=== PATIENT | male | born 1950 | race Caucasian/White ===

== ENCOUNTER 2018-01-27 15:10 | Emergency (ER) | payer OTHER ==
[~2018-01-27] VITALS: Ht 175.3 cm; Wt 88.0 kg
[2018-01-27 15:45] LABS: BASOPHILS # (AUTO) 0.05 x10^3/uL (0-0.1); BASOPHILS % (AUTO) 1 % (0-1); EOSINOPHILS % (AUTO) 2 % (1-7); LYMPHOCYTES # (AUTO) 1.12 x10^3/uL (1-3.4); LYMPHOCYTES % (AUTO) 16 % (22-44); MD NO; MEAN CORPUSCULAR HEMOGLOBIN 26.1 pg (27.5-34.5); MEAN CORPUSCULAR HGB CONC 32.4 g/dL (33.2-36.2); MEAN CORPUSCULAR VOLUME 80.7 fL (81-97); MEAN PLATELET VOLUME 7.5 fL (7.4-10.4); MONOCYTES % (AUTO) 14 % (2-9); NEUTROPHILS # (AUTO) 4.69 x10^3/uL (1.8-6.8); NEUTROPHILS % (AUTO) 67 % (42-75); PLATELET COUNT 174 x10^3/uL (130-400); RED BLOOD COUNT 4.73 x10^6/uL (4.38-5.82); RED CELL DISTRIBUTION WIDTH 20.5 % (9.4-14.8)
[2018-01-27 15:57] LABS: ALBUMIN 2.9 g/dL (3.4-5.0); ANION GAP 11 mmol/L (5-15); CALCIUM 8.5 mg/dL (8.5-10.1); CHLORIDE 98 mmol/L (98-107)
[2018-01-27 16:00] LABS: ALANINE AMINOTRANSFERASE 39 U/L (12-78); ALKALINE PHOSPHATASE 95 U/L (45-117); BILIRUBIN,TOTAL 1.8 mg/dL (0.2-1.0); CREATININE 1.03 mg/dL (0.7-1.3); TOTAL PROTEIN 7.8 g/dL (6.4-8.2)
[2018-01-27 16:15] LABS: CULTURE INDICATED? YES; MICROSCOPIC INDICATED
[2018-01-27 16:47] VITALS: BP 120/75
== END 2018-01-27 16:49 | disposition home or self-care (01) ==
LOC: ED 16:43
DX: K42.9 Umbilical hernia without obstruction or gangrene (principal); K74.60 Unspecified cirrhosis of liver
CPT/HCPCS: 36415; 74022; 80053; 81001; 83690; 85025; 87086; 99285

== ENCOUNTER 2018-04-26 07:38 | Emergency (ER) | payer MEDICARE, OTHER ==
[~2018-04-26] VITALS: Ht 175.3 cm; Wt 84.1 kg
--- NOTE | 2018-04-26 08:13 | NUR ---
PT. IS A & O X 4 WITH C/O RIGHT LOWER LEG PAIN. PT.' S CMS CHECKS ARE INTACT. PULSES ARE +2 THROUGHOUT. PT. HAS SWELLING PRESENT TO HIS LEG. PT.'S HOB IS ELEVATED GREATER THAN 30 DEGREES. SIDERAILS ARE UP X 2 WITH THE CALL LIGHT IN PLACE.
[2018-04-26 08:15] LABS: MEAN CORPUSCULAR HEMOGLOBIN 27.4 pg (27.5-34.5); MEAN CORPUSCULAR HGB CONC 32.2 g/dL (33.2-36.2); MEAN CORPUSCULAR VOLUME 85.1 fL (81-97); MEAN PLATELET VOLUME 6.9 fL (7.4-10.4); PLATELET COUNT 155 x10^3/uL (130-400); RED BLOOD COUNT 4.57 x10^6/uL (4.38-5.82); RED CELL DISTRIBUTION WIDTH 22.5 % (9.4-14.8)
[2018-04-26 08:17] LABS: INTERNATIONAL NORMALIZED RATIO 1.13 (0.93-1.1); PROTHROMBIN TIME 11.9 Seconds (9.6-11.5)
[2018-04-26 08:19] LABS: ALBUMIN 3.1 g/dL (3.4-5.0); ANION GAP 5 mmol/L (5-15); CALCIUM 8.4 mg/dL (8.5-10.1); CHLORIDE 111 mmol/L (98-107); CREATININE 0.88 mg/dL (0.7-1.3)
[2018-04-26 08:34] LABS: BASOPHILS # (AUTO) 0.04 x10^3/uL (0-0.1); BASOPHILS % (AUTO) 1 % (0-1); EOSINOPHILS # (AUTO) 0.17 x10^3/uL (0-0.4); EOSINOPHILS % (AUTO) 4 % (1-7); LYMPHOCYTES # (AUTO) 1.22 x10^3/uL (1-3.4); LYMPHOCYTES % (AUTO) 30 % (22-44); MD MORPH REVIEW ONLY; MONOCYTES # (AUTO) 0.73 x10^3/uL (0.2-0.8); MONOCYTES % (AUTO) 18 % (2-9); NEUTROPHILS # (AUTO) 1.93 x10^3/uL (1.8-6.8); NEUTROPHILS % (AUTO) 47 % (42-75)
[2018-04-26 08:36] LABS: <PLATELET ESTIMATE> ADEQUATE; <PLT MORPHOLOGY> NORMAL PLT MORPH; ANISOCYTOSIS 1+; OVALOCYTES 1+; POLYCHROMASIA 1+
[2018-04-26 10:32] VITALS: BP 136/84
== END 2018-04-26 10:34 | disposition home or self-care (01) ==
LOC: ED 08:21
DX: I82.411 Acute embolism and thrombosis of right femoral vein (principal); I10 Essential (primary) hypertension; F17.210 Nicotine dependence, cigarettes, uncomplicated
CPT/HCPCS: 36415; 80048; 82040; 85025; 85610; 99284

== ENCOUNTER 2020-02-23 12:25 | Observation (INO) | payer MEDICARE ==
[~2020-02-23] VITALS: Ht 177.8 cm; Wt 86.0 kg
[2020-02-23] MEDS ORDERED: ONDANSETRON 2MG/ML, 2ML ONE (13:20)
[2020-02-23] MEDS ORDERED: MORPHINE SULFATE 4 MG/ML, 1ML ONE (13:20)
[2020-02-23 13:25] LABS: ALBUMIN 2.4 g/dL (3.4-5.0); ANION GAP 8 mmol/L (5-15); CALCIUM 8.4 mg/dL (8.5-10.1); CHLORIDE 105 mmol/L (98-107)
[2020-02-23] MEDS ORDERED: ONDANSETRON 2MG/ML, 2ML IVPush ONE (13:30)
[2020-02-23] MEDS ORDERED: SODIUM CHLORIDE FLUSH 10ML SYR IVF ONE (13:30)
[2020-02-23] MEDS ORDERED: MORPHINE SULFATE 4 MG/ML, 1ML IVPush PRN (13:30)
[2020-02-23 13:32] LABS: ALANINE AMINOTRANSFERASE 27 U/L (12-78); ALKALINE PHOSPHATASE 100 U/L (45-117); BILIRUBIN,TOTAL 1.5 mg/dL (0.2-1.0); TOTAL PROTEIN 7.9 g/dL (6.4-8.2); TROPONIN I < 0.015 ng/mL (0.000-0.045)
[2020-02-23 14:54] LABS: BASOPHILS % (AUTO) 1 % (0-1); EOSINOPHILS % (AUTO) 1 % (1-7); LYMPHOCYTES % (AUTO) 19 % (22-44); MEAN CORPUSCULAR HEMOGLOBIN 25.3 pg (27.5-34.5); MEAN CORPUSCULAR HGB CONC 31.4 g/dL (33.2-36.2); MEAN PLATELET VOLUME 7.6 fL (7.4-10.4); MONOCYTES % (AUTO) 15 % (2-9); NEUTROPHILS % (AUTO) 64 % (42-75); PLATELET COUNT 188 x10^3/uL (130-400); RED BLOOD COUNT 3.67 x10^6/uL (4.38-5.82); RED CELL DISTRIBUTION WIDTH 22.8 % (9.4-14.8)
[2020-02-23 15:01] LABS: MD MORPH REVIEW ONLY
[2020-02-23 15:54] LABS: ANISOCYTOSIS 1+; POLYCHROMASIA 1+
[2020-02-23 15:55] LABS: <PLATELET ESTIMATE> ADEQUATE; <PLT MORPHOLOGY> NORMAL PLT MORPH; OVALOCYTES 1+
--- NOTE | 2020-02-23 15:57 | NUR ---
[place] NOT[place] AT [place], PT ON ALL MONITORING, WILL CONTINUE TO MONITOR. NO NEEDS AT THIS TIME PER PT.
[2020-02-23] MEDS ORDERED: MELATONIN 5 MG TABLET PO PRN (16:30)
[2020-02-23] MEDS ORDERED: HEPARIN 5,000 UNITS/ML, 1ML SQ SCH (16:30)
[2020-02-23] MEDS ORDERED: ENALAPRILAT 1.25 MG/ML, 2ML IVPush PRN (16:30)
[2020-02-23] MEDS ORDERED: ONDANSETRON ODT 4 MG PO PRN (16:30)
[2020-02-23] MEDS ORDERED: DOCUSATE 100 MG CAPSULE PO PRN (16:30)
[2020-02-23] MEDS ORDERED: morphine SULFATE 10 MG/ML, 1ML IVPush PRN (16:30)
[2020-02-23] MEDS ORDERED: IBUPROFEN 600 MG TABLET PO PRN (16:30)
[2020-02-23 17:22] LABS: INTERNATIONAL NORMALIZED RATIO 1.22 (0.93-1.1); PROTHROMBIN TIME 12.9 Seconds (9.6-11.5)
[2020-02-23] MEDS ORDERED: HEPARIN 5,000 UNITS/ML, 1ML ONE (17:39)
[2020-02-23] MEDS ORDERED: OMNIPAQUE 350 MG/ML, 75ML BOTTLE ONE (17:40)
[2020-02-23 18:19] VITALS: BP 129/74
[2020-02-23] MEDS ORDERED: HEPARIN 5,000 UNITS/ML, 1ML IV PRN ×2 (19:00→19:30)
[2020-02-23] MEDS ORDERED: HEPARIN 25,000 UNITS/250ML PMX 250 ML IV PRN ×2 (19:00→19:30)
[2020-02-23] MEDS ORDERED: HEPARIN 5,000 UNITS/ML, 1ML IV ONE ×2 (19:00→19:30)
[2020-02-23 19:04] VITALS: BP 123/66
[2020-02-23] MEDS ORDERED: SPIRONOLACTONE 25 MG TABLET ONE (20:31)
[2020-02-23] MEDS: SPIRONOLACTONE 50 MG TABLET PO SCH (20:38)
[2020-02-23 20:57] LABS: TROPONIN I < 0.015 ng/mL (0.000-0.045)
[2020-02-24 01:21] VITALS: BP 118/68
[2020-02-24 02:04] LABS: TROPONIN I < 0.015 ng/mL (0.000-0.045)
[2020-02-24 04:00] LABS: BASOPHILS % (AUTO) 1 % (0-1); EOSINOPHILS % (AUTO) 1 % (1-7); LYMPHOCYTES % (AUTO) 22 % (22-44); MEAN CORPUSCULAR HEMOGLOBIN 25.3 pg (27.5-34.5); MEAN CORPUSCULAR HGB CONC 31.6 g/dL (33.2-36.2); MEAN PLATELET VOLUME 7.2 fL (7.4-10.4); MONOCYTES % (AUTO) 17 % (2-9); NEUTROPHILS % (AUTO) 60 % (42-75); PLATELET COUNT 168 x10^3/uL (130-400)
[2020-02-24 04:06] LABS: ALANINE AMINOTRANSFERASE 23 U/L (12-78); ANION GAP 7 mmol/L (5-15); CALCIUM 8.2 mg/dL (8.5-10.1); CHLORIDE 105 mmol/L (98-107)
[2020-02-24 04:09] LABS: ALKALINE PHOSPHATASE 83 U/L (45-117); BILIRUBIN,TOTAL 1.7 mg/dL (0.2-1.0); CREATININE 0.95 mg/dL (0.7-1.3); TOTAL PROTEIN 6.8 g/dL (6.4-8.2)
[2020-02-24 05:48] LABS: MD SCAN
[2020-02-24] MEDS ORDERED: PANTOPRAZOLE 40MG TABLET PO SCH (07:30)
[2020-02-24] MEDS ORDERED: POTASSIUM CHLORIDE 10 MEQ TABLET.ER PO SCH (08:00)
[2020-02-24] MEDS ORDERED: FUROSEMIDE 20 MG TABLET PO SCH (09:00)
[2020-02-24] MEDS: SPIRONOLACTONE 50 MG TABLET PO SCH (10:23)
[2020-02-24 10:42] VITALS: BP 103/61
[2020-02-24 14:15] VITALS: BP 105/66
[2020-02-24] MEDS ORDERED: APIX5TAB4 PO (15:01)
[2020-02-24] MEDS ORDERED: APIXABAN 5 MG TABLET ONE ×2 (15:19→15:21)
[2020-02-24] MEDS ORDERED: APIXABAN 5 MG TABLET PO SCH ×2 (15:30→15:33)
[2020-02-24] MEDS ORDERED: RIVA15TA PO (16:26)
[2020-02-24] MEDS ORDERED: RIVA20TA PO (16:27)
== END 2020-02-24 17:52 ==
LOC: ED 12:47 → EDIP 16:20 → 5SO 18:10
PROVIDERS: ADMIT Family Medicine; ATTEND Internal Medicine
DX: R07.89 Other chest pain (principal); I26.99 Other pulmonary embolism without acute cor pulmonale; I82.401 Acute embolism and thrombosis of unspecified deep veins of right lower extremity; R60.0 Localized edema; L53.8 Other specified erythematous conditions; K70.31 Alcoholic cirrhosis of liver with ascites; R74.01 Elevation of levels of liver transaminase levels; I10 Essential (primary) hypertension; R60.1 Generalized edema; E80.6 Other disorders of bilirubin metabolism; E46 Unspecified protein-calorie malnutrition; E87.6 Hypokalemia; D68.59 Other primary thrombophilia; I85.10 Secondary esophageal varices without bleeding; F10.10 Alcohol abuse, uncomplicated; F17.200 Nicotine dependence, unspecified, uncomplicated; Z86.718 Personal history of other venous thrombosis and embolism; Z85.038 Personal history of other malignant neoplasm of large intestine; Z90.49 Acquired absence of other specified parts of digestive tract; Z87.19 Personal history of other diseases of the digestive system; Z88.0 Allergy status to penicillin; Z66 Do not resuscitate; Z79.899 Other long term (current) drug therapy
CPT/HCPCS: 36415; 71045; 71275; 76700; 80053; 84484; 85025; 85379; 85520; 85610; 93005; 93970; 96365; 96366; 96372; 96375; 96376; 99285; G0378; J1644; J2270; J2405; Q9967

== ENCOUNTER 2020-03-22 07:44 | Outpatient (CLI) | payer MEDICARE ==
[~2020-03-22 07:44] MED LIST: APIX5TAB4 PO; RIVA15TA PO; RIVA20TA PO
[2020-03-22] MEDS ORDERED: WARF1TAB74 PO (08:11)
== END 2020-03-22 23:59 | disposition home or self-care (01) ==
LOC: STAR 07:44
PROVIDERS: ATTEND Internal Medicine Gastroenterology
DX: Z20.828 Contact with and (suspected) exposure to other viral communicable diseases (principal); K74.60 Unspecified cirrhosis of liver
CPT/HCPCS: 87635

== ENCOUNTER 2020-03-27 08:05 | Day surgery (SDC) | payer MEDICARE ==
[~2020-03-27] VITALS: Ht 177.8 cm; Wt 79.1 kg
[~2020-03-27 08:05] MED LIST changes: +WARF1TAB74 PO
[2020-03-27] MEDS ORDERED: ALBUTEROL SULFATE 2.5 MG/3 ML NPPB PRN (08:30)
[2020-03-27] MEDS ORDERED: FENTANYL PF 100 MCG/2ML IV PRN (08:30)
[2020-03-27] MEDS ORDERED: EPHEDRINE 50 MG/ML, 1ML IM PRN (08:30)
[2020-03-27] MEDS ORDERED: METOCLOPRAMIDE 5 MG/ML, 2ML IVPush PRN (08:30)
[2020-03-27] MEDS ORDERED: LABETALOL 5MG/ML, 20ML IV PRN (08:30)
[2020-03-27] MEDS ORDERED: HALOPERIDOL 5 MG/ML IV PRN (08:30)
[2020-03-27] MEDS ORDERED: ONDANSETRON 2MG/ML, 2ML IVPush PRN (08:30)
[2020-03-27] MEDS ORDERED: EPHEDRINE 50 MG/ML, 1ML IVPush PRN (08:30)
[2020-03-27] MEDS ORDERED: hydrALAzine 20 MG/ML, 1ML IV PRN (08:30)
[2020-03-27] MEDS ORDERED: MIDAZOLAM 1 MG/ML, 2ML IV PRN (08:30)
[2020-03-27] MEDS ORDERED: OXYcodone 5 MG/5 ML ORAL.SOL UDC PO PRN ×2 (08:30→11:30)
[2020-03-27] MEDS ORDERED: LORazepam 2 MG/ML, 1ML IVPush PRN (08:30)
[2020-03-27] MEDS ORDERED: DIPHENHYDRAMINE 50 MG/ML, 1ML IVPush PRN (08:30)
[2020-03-27] MEDS ORDERED: METHOCARBAMOL 1,000 MG in DEXTROSE 5% 100 ML IV PRN (08:30)
[2020-03-27] MEDS ORDERED: DIAZEPAM 5 MG/ML, 2ML IVPush PRN (08:30)
[2020-03-27] MEDS ORDERED: HYDROcodone/APAP 7.5-325MG/15ML UDC PO PRN (08:30)
[2020-03-27] MEDS ORDERED: LIDOCAINE-MPF 1%, 2ML INFIL ONE (09:00)
[2020-03-27] MEDS ORDERED: CHLORHEXIDINE 15 ML UDC MM ONE (09:00)
[2020-03-27] MEDS ORDERED: LACTATED RINGERS 1,000 ML IV SCH (09:00)
[2020-03-27 09:02] VITALS: BP 144/74
[2020-03-27] MEDS ORDERED: DIURETIC PO (09:02)
[2020-03-27 10:07] LABS: BASOPHILS % (AUTO) 2 % (0-1); EOSINOPHILS % (AUTO) 3 % (1-7); LYMPHOCYTES % (AUTO) 27 % (22-44); MEAN CORPUSCULAR HEMOGLOBIN 23.8 pg (27.5-34.5); MEAN CORPUSCULAR HGB CONC 31.2 g/dL (33.2-36.2); MEAN PLATELET VOLUME 8.3 fL (7.4-10.4); MONOCYTES % (AUTO) 15 % (2-9); NEUTROPHILS % (AUTO) 54 % (42-75); PLATELET COUNT 162 x10^3/uL (130-400); RED BLOOD COUNT 3.92 x10^6/uL (4.38-5.82); RED CELL DISTRIBUTION WIDTH 22.5 % (9.4-14.8)
[2020-03-27 10:12] LABS: INTERNATIONAL NORMALIZED RATIO 1.24 (0.93-1.1); PROTHROMBIN TIME 13.1 Seconds (9.6-11.5)
[2020-03-27] MEDS ORDERED: FENTANYL PF 100 MCG/2ML ONE ×2 (10:34)
[2020-03-27] MEDS ORDERED: MIDAZOLAM 1 MG/ML, 5ML ONE (10:34)
[2020-03-27 10:59] LABS: <PLATELET ESTIMATE> ADEQUATE; <PLT MORPHOLOGY> NORMAL PLT MORPH; ANISOCYTOSIS 1+; HYPOCHROMIA 1+; MD MORPH REVIEW ONLY; MICROCYTOSIS 1+; OVALOCYTES 1+; POLYCHROMASIA 1+
[2020-03-27] MEDS ORDERED: LIDOCAINE 2% VISCOUS 15 ML UDC MM ONE (11:30)
== END 2020-03-27 13:18 | disposition home or self-care (01) ==
LOC: OUT 08:05
PROVIDERS: ATTEND Internal Medicine Gastroenterology
DX: K70.31 Alcoholic cirrhosis of liver with ascites (principal); I85.10 Secondary esophageal varices without bleeding; K76.6 Portal hypertension; K31.89 Other diseases of stomach and duodenum; I10 Essential (primary) hypertension; Z85.038 Personal history of other malignant neoplasm of large intestine; Z86.718 Personal history of other venous thrombosis and embolism; Z87.891 Personal history of nicotine dependence; Z88.0 Allergy status to penicillin; Z90.49 Acquired absence of other specified parts of digestive tract
CPT/HCPCS: 36415; 43244; 85025; 85610; 99152; 99153; J2250; J3010; J7120

== ENCOUNTER 2020-08-29 09:49 | Outpatient (CLI) | payer MEDICARE ==
[~2020-08-29 09:49] MED LIST changes: +DIURETIC PO
[2020-08-29] MEDS ORDERED: OMNIPAQUE 350 MG/ML, 75ML BOTTLE ONE (10:15)
== END 2020-08-29 23:59 | disposition home or self-care (01) ==
LOC: CFH 09:49
PROVIDERS: ATTEND Internal Medicine Gastroenterology
DX: C22.0 Liver cell carcinoma (principal)
CPT/HCPCS: 71260; 82565; Q9967

== ENCOUNTER 2020-09-05 10:42 | Day surgery (SDC) | payer MEDICARE ==
[~2020-09-05] VITALS: Ht 175.3 cm; Wt 80.3 kg
[2020-09-05] MEDS ORDERED: CHLORHEXIDINE 15 ML UDC ONE (11:34)
[2020-09-05] MEDS ORDERED: FENTANYL PF 100 MCG/2ML ONE (11:38)
[2020-09-05] MEDS ORDERED: IRON1TAB60 PO (11:44)
[2020-09-05 11:46] VITALS: BP 157/78
[2020-09-05 11:46] LABS: INTERNATIONAL NORMALIZED RATIO 1.36 (0.93-1.1); PROTHROMBIN TIME 14.5 Seconds (9.6-11.5)
[2020-09-05 11:48] LABS: ALANINE AMINOTRANSFERASE 48 U/L (12-78); ALBUMIN 3.2 g/dL (3.4-5.0); ANION GAP 7 mmol/L (5-15); CALCIUM 8.8 mg/dL (8.5-10.1); CHLORIDE 109 mmol/L (98-107); CREATININE 0.93 mg/dL (0.7-1.3)
[2020-09-05 11:54] LABS: ALKALINE PHOSPHATASE 94 U/L (45-117); BILIRUBIN,TOTAL 3.5 mg/dL (0.2-1.0); TOTAL PROTEIN 8.1 g/dL (6.4-8.2)
[2020-09-05] MEDS ORDERED: hydrALAzine 20 MG/ML, 1ML IV PRN (12:00)
[2020-09-05] MEDS ORDERED: OXYcodone 5 MG/5 ML ORAL.SOL UDC PO PRN (12:00)
[2020-09-05] MEDS ORDERED: LACTATED RINGERS 1,000 ML IV SCH (12:00)
[2020-09-05] MEDS ORDERED: HALOPERIDOL 5 MG/ML IV PRN (12:00)
[2020-09-05] MEDS ORDERED: METOCLOPRAMIDE 5 MG/ML, 2ML IVPush PRN (12:00)
[2020-09-05] MEDS ORDERED: CHLORHEXIDINE 15 ML UDC PO ONE (12:00)
[2020-09-05] MEDS ORDERED: DIAZEPAM 5 MG/ML, 2ML IVPush PRN (12:00)
[2020-09-05] MEDS ORDERED: FENTANYL PF 100 MCG/2ML IV PRN (12:00)
[2020-09-05] MEDS ORDERED: METOPROLOL 1 MG/ML, 5ML IV PRN (12:00)
[2020-09-05] MEDS ORDERED: PROMETHAZINE 25 MG/ML, 1ML IVPush PRN (12:00)
[2020-09-05] MEDS ORDERED: DIPHENHYDRAMINE 50 MG/ML, 1ML IVPush PRN (12:00)
[2020-09-05] MEDS ORDERED: EPHEDRINE 50 MG/ML, 1ML IVPush PRN (12:00)
[2020-09-05] MEDS ORDERED: ONDANSETRON 2MG/ML, 2ML IVPush PRN (12:00)
[2020-09-05] MEDS ORDERED: LABETALOL 5MG/ML, 20ML IV PRN (12:00)
[2020-09-05] MEDS ORDERED: ACETAMINOPHEN 325 MG TABLET PO PRN (12:00)
[2020-09-05] MEDS ORDERED: PROPOFOL 10 MG/ML, 50ML ONE (12:03)
[2020-09-05] MEDS ORDERED: ONDANSETRON 2MG/ML, 2ML ONE (12:03)
== END 2020-09-05 14:10 | disposition home or self-care (01) ==
LOC: OR 10:42 → OUT 14:10
PROVIDERS: ATTEND Internal Medicine Gastroenterology
DX: I85.00 Esophageal varices without bleeding (principal); D12.5 Benign neoplasm of sigmoid colon; D50.9 Iron deficiency anemia, unspecified; K76.6 Portal hypertension; K31.89 Other diseases of stomach and duodenum; K70.30 Alcoholic cirrhosis of liver without ascites; K26.9 Duodenal ulcer, unspecified as acute or chronic, without hemorrhage or perforation; Z88.0 Allergy status to penicillin; Z20.822 Contact with and (suspected) exposure to COVID-19; Z98.890 Other specified postprocedural states; Z79.01 Long term (current) use of anticoagulants; Z87.891 Personal history of nicotine dependence; Z79.899 Other long term (current) drug therapy; Z85.038 Personal history of other malignant neoplasm of large intestine
CPT/HCPCS: 36415; 43239; 43244; 45385; 80053; 85610; 85730; 87635; 88305; 93005; J2405; J2704; J3010; J7120

== ENCOUNTER 2020-09-25 09:31 | Outpatient (CLI) | payer MEDICARE ==
[~2020-09-25 09:31] MED LIST changes: +IRON1TAB60 PO
== END 2020-09-25 23:59 | disposition home or self-care (01) ==
LOC: RAD 09:31
PROVIDERS: ATTEND Internal Medicine Gastroenterology
DX: C22.0 Liver cell carcinoma (principal); K70.30 Alcoholic cirrhosis of liver without ascites
CPT/HCPCS: 37243; 75894

== ENCOUNTER 2020-10-17 06:46 | Day surgery (SDC) | payer MEDICARE ==
[~2020-10-17] VITALS: Ht 175.3 cm; Wt 83.4 kg
[2020-10-17 07:30] VITALS: BP 134/80
[2020-10-17 08:01] LABS: INTERNATIONAL NORMALIZED RATIO 1.23 (0.93-1.1)
[2020-10-17] MEDS ORDERED: LIDOCAINE 1%, 10ML ONE (08:29)
[2020-10-17] MEDS ORDERED: DOXorubicin 75 MG in SYRINGE 1 EA IV ONE (09:00)
[2020-10-17] MEDS ORDERED: MIDAZOLAM 1 MG/ML, 5ML ONE (09:09)
[2020-10-17] MEDS ORDERED: FENTANYL PF 100 MCG/2ML ONE (09:09)
[2020-10-17] MEDS ORDERED: NALOXONE 1 MG/ML, 2ML ONE (09:10)
[2020-10-17] MEDS ORDERED: FLUMAZENIL 0.1 MG/1 ML, 5ML ONE (09:10)
[2020-10-17 10:11] LABS: ANION GAP 7 mmol/L (5-15); CHLORIDE 110 mmol/L (98-107); CREATININE 0.77 mg/dL (0.7-1.3)
[2020-10-17 10:12] LABS: ALANINE AMINOTRANSFERASE 43 U/L (12-78); ALBUMIN 2.7 g/dL (3.4-5.0)
[2020-10-17 10:14] LABS: ALKALINE PHOSPHATASE 95 U/L (45-117); BILIRUBIN,TOTAL 2.8 mg/dL (0.2-1.0); TOTAL PROTEIN 7.5 g/dL (6.4-8.2)
== END 2020-10-17 10:50 | disposition home or self-care (01) ==
LOC: OUT 06:46
PROVIDERS: ATTEND Internal Medicine Gastroenterology
DX: C22.0 Liver cell carcinoma (principal); K70.30 Alcoholic cirrhosis of liver without ascites; I10 Essential (primary) hypertension; Z87.891 Personal history of nicotine dependence; Z88.0 Allergy status to penicillin
CPT/HCPCS: 36415; 75894; 80053; 85610; J2250; J3010; J2310